=== PATIENT | female | born 1980 | race American Indian/Alaskan Native ===

== ENCOUNTER 2016-08-20 13:17 | Observation (INO) | payer OTHER ==
[2016-08-20 15:19] LABS: RBC URINE 2 /hpf (0-3); URINE BILIRUBIN NEGATIVE (NEGATIVE); URINE BLOOD NEGATIVE (NEGATIVE); URINE COLOR Yellow (YELLOW); URINE GLUCOSE (UA) NORMAL (Normal); URINE KETONE TRACE mg/dL (NEGATIVE); URINE LEUKOCYTE ESTERASE TRACE Leu/uL (Negative); URINE PROTEIN NEGATIVE (NEGATIVE); URINE UROBILINOGEN NORMAL mg/dL (0.2-1.0); WBC URINE 2 /hpf (0-5)
[2016-08-20] MEDS ORDERED: Sodium Chloride 0.9% 1,000 ML IV ONE (15:31)
[2016-08-20] MEDS ORDERED: Sodium Chloride 0.9% 1,000 ML ONE (15:47)
[2016-08-20 16:07] LABS: BASO # 0.1 K/uL (0.0-0.2); BASO % 0.9 % (0.0-2.0); EOS # 0.2 K/uL (0.0-0.7); EOS % 2.5 % (0.0-4.0); HEMATOCRIT 34.3 % (34.0-47.0); LYMPH # 1.9 K/uL (1.0-4.3); LYMPH % 24.9 % (20.0-40.0); MEAN CELL VOLUME 88.4 fL (81.0-99.0); MEAN CORPUSCULAR HEMOGLOBIN 28.8 pg (27.0-31.0); MEAN CORPUSCULAR HGB CONC 32.6 g/dL (33.0-37.0); MEAN PLATELET VOLUME 8.1 fL (7.2-11.7); MONO # 0.6 K/uL (0.0-0.8); MONO % 7.3 % (0.0-10.0); RED CELL DISTRIBUTION WIDTH 13.3 % (11.5-14.5); WHITE BLOOD COUNT 7.7 K/uL (4.8-10.8)
[2016-08-20 16:17] LABS: CHLORIDE 102 mmol/L (98-107)
[2016-08-20 16:18] LABS: GFR AFRICAN-AMERICAN > 60; POTASSIUM 4.5 mmol/L (3.6-5.2); SODIUM 133 mmol/L (132-148)
[2016-08-20 16:19] LABS: ALKALINE PHOSPHATASE 64 U/L (38-126); ALT/SGPT 173 U/L (9-52); AST/SGOT 125 U/L (14-36); BILIRUBIN,TOTAL 0.5 mg/dL (0.2-1.3); BLOOD UREA NITROGEN 4 mg/dL (7-17); CALCIUM 8.7 mg/dl (8.6-10.4); CARBON DIOXIDE 20 mmol/L (22-30); GLUCOSE,RANDOM 77 mg/dL (65-105); TOTAL PROTEIN 7.3 g/dL (6.3-8.3)
--- NOTE | 2016-08-20 18:17 | US ---
Indication: Abdominal pain Comparison: None available Technique: Transabdominal pelvic ultrasound Findings: The uterus measures approximately 16 x 9.2 x 12.5 cm. Cervix length measures approximately 3.6 cm. There is a single intrauterine fetus present. Yolk sac is not identified. The crown-rump length measures 7.1 cm and is compatible with a gestational age of 13 weeks 2 days. There is heart motion which measured 156.6 BPM. The right ovary measures 2.8 x 1.5 x 2.1 cm. The left ovary measures 2.9 x 2.3 x 2.8 cm. 1.7 x 1.6 x 1.7 cm probable left corpus luteal cyst. Blood flow was demonstrated to both ovaries. Impression: Live single intrauterine with estimated gestational age 13 weeks 2 days. heart rate 156.6 bpm. Advise an anomaly screen at 16-18 weeks gestational age Additional findings as above.
--- NOTE | 2016-08-20 18:27 | US ---
Jump PROCEDURE: Ultrasound of the Kidneys HISTORY: Right flank pain COMPARISON: None available. TECHNIQUE: Sonogram of the kidneys. FINDINGS: RIGHT KIDNEY: Measures: 12.6 x 5.0 x 6.0 cm. No obstructing calculus identified. Probable prominent extrarenal pelvis. No definite hydronephrosis. LEFT KIDNEY: Measures: 12.6 x 5.8 x 6.0 cm. No obstructing calculus identified. Probable prominent extrarenal pelvis. No definite hydronephrosis. OTHER FINDINGS: Prevoid urinary bladder measures approximately 9.3 x 5.4 x 9.0 cm, calculated volume 234.1 mL. No postvoid residual. Bilateral ureteral jets are identified. Urinary bladder wall thickness likely exaggerated by under distension IMPRESSION: Examination limited by habitus. Bilateral probable prominent extra renal pelves. No definite evidence of hydronephrosis. Correlate clinically. Prevoid urinary bladder calculated volume 234.1 mL. No postvoid residual. Urinary bladder wall thickness likely exaggerated by under distension. Correlate clinically.
--- NOTE | 2016-08-20 19:51 | C.PDOC ---
Time Seen by Provider: 08/20/16 15:11 Chief Complaint (Nursing): Abdominal Pain History Per: Patient Onset/Duration Of Symptoms: Days, Waxing/Waning Current Symptoms Are (Timing): Still Present Severity: Moderate Location Of Pain/Discomfort: RLQ, Suprapubic Radiation Of Pain To:: Back, Flank Quality Of Discomfort: "Pain" Associated Symptoms: Nausea, Vomiting Alleviating Factors: None Additional History Per: Prior Records Abnormal Vaginal Bleeding: No Last Menstral Period: 13 week Past Medical History Reviewed: Historical Data, Nursing Documentation, Vital Signs Vital Signs: Last Vital Signs Temp 98.3 F 08/20/16 18:52 Pulse 90 08/20/16 18:52 Resp 18 08/20/16 18:52 BP 117/68 08/20/16 18:52 Pulse Ox 97 08/20/16 19:51 - Medical History PMH: No Chronic Diseases Surgical History: No Surg Hx Family History: States: Unknown Family Hx - Social History Hx Alcohol Use: No Hx Substance Use: No - Immunization History Hx Tetanus Toxoid Vaccination: No Hx Influenza Vaccination: No Hx Pneumococcal Vaccination: No Review Of Systems Except As Marked, All Systems Reviewed And Found Negative. Constitutional: Negative for: Fever, Weakness Cardiovascular: Negative for: Chest Pain Respiratory: Negative for: Shortness of Breath Gastrointestinal: Positive for: Nausea, Vomiting, Abdominal Pain. Negative for : Diarrhea, Melena, Hematochezia, Hematemesis Genitourinary: Negative for: Vaginal Discharge, Vaginal Bleeding Musculoskeletal: Positive for: Back Pain. Negative for: Neck Pain Skin: Negative for: Rash Neurological: Negative for: Weakness, Numbness, Seizures, Altered Mental Status Physical Exam - Physical Exam Appears: Non-toxic, No Acute Distress Skin: Normal Color, Warm, Dry, No Rash Head: Atraumatic, Normacephalic Eye(s): bilateral: PERRL, EOMI Neck: Normal ROM, Supple Cardiovascular: Rhythm Regular Respiratory: Normal Breath Sounds, No Accessory Muscle Use Gastrointestinal/Abdominal: Soft, Tenderness (nonspecific right lower side), Other (Gravid) Back: CVA Tenderness (mild right) Extremity: Normal ROM Neurological/Psych: Oriented x3, Normal Motor, Normal Sensation ED Course And Treatment - Laboratory Results Result Diagrams: 08/20/16 16:03 08/20/16 16:03 Lab Interpretation: No Acute Changes Urine POC: Positive O2 Sat by Pulse Oximetry: 97 Pulse Ox Interpretation: Normal - CT Scan/US Pelvic US Other Rad Studies (CT/US): Read By Radiologist, Radiology Report Reviewed CT/US Interpretation: Impression: Live single intrauterine with estimated gestational age 13 weeks 2 days. heart rate 156.6 bpm. Advise an anomaly screen at 16-18 weeks gestational age. Additional findings as above. Renal US Other Rad Studies (CT/US): Read By Radiologist, Radiology Report Reviewed CT/US Interpretation: IMPRESSION: Examination limited by habitus. Bilateral probable prominent extra renal pelves. No definite evidence of hydronephrosis. Correlate clinically. Prevoid urinary bladder calculated volume 234.1 mL. No postvoid residual. Urinary bladder wall thickness likely exaggerated by under distension. Correlate clinically. Progress Note: After IVF and Tylenol, pt is still in pain. - Physician Consult Information Physician Contacted: Braydon Bhardwaj (Airframe Technician) Outcome Of Conversation: She wants pt to be admitted on medical service and she will consult. Progress - Interventions Interventions:: Observation, Intravenous fluid - Medications Administered Oral: Acetaminophen Intravenous: Antiemetic, Opiate - Data Reviewed Data Reviewed: Lab, Diagnostic imaging, Old records - Patient Status Patient status: Partially improved - Continuity of Care Discussed patient case with:: Patient, ED Nurse, On-call PMD-pt unassigned Discussed pt. case with retirement sales consultant/specialty: Obstetrics/Gynecology Medical Decision Making Medical Decision Making: Plan is to place pt on observation for serial abdominal exams and to obtain an MRI of the abdomen in the AM. Disposition Discussed With : Milton Fleming Comment: He accepted pt on his service and gave admitting orders to the nurse. Doctor Will See Patient In The: Hospital Counseled Patient/Family Regarding: Studies Performed, Diagnosis - Disposition Disposition: HOSPITALIZED Disposition Time: 20:27 Condition: FAIR - Clinical Impression Clinical Impression: Abdominal pain during
[2016-08-20] MEDS ORDERED: Nalbuphine 20 mg/ml Inj (1 ml) IVP STA (20:00)
[2016-08-20] MEDS: Dextrose 5%/0.45% NS 1,000 ML IV SCH (20:40)
--- NOTE | 2016-08-20 22:09 | CP.PCM.CON ---
History of Present Illness - History of Present Illness History of Present Illness: ob consult HPI 35 y/o with LMP 05/27/16, of presents to er with c/o abdominal pain radiating to right flank.patient states that she has nausea and vomiting from the beginning of . hx of constipation with last bowel movement 1 week ago pateintd eneis any fever, chills, chest pain, shortenss of breath, shoulder pain Review of Systems - Review of Systems All systems: reviewed and no additional remarkable complaints except - Constitutional Constitutional: absent: Chills, Headache, Weight Loss, Weakness - EENT Eyes: absent: Change in Vision - Cardiovascular Cardiovascular: absent: Chest Pain, Dyspnea - Respiratory Respiratory: absent: Cough, Dyspnea - Gastrointestinal Gastrointestinal: Abdominal Pain, Bloating, Constipation, Nausea - Genitourinary Genitourinary: absent: Dysuria, Urinary Urgency - Reproductive: Female Reproductive:Female: Amenorrhea - Psychiatric Psychiatric: absent: Anxiety Past Patient History - Past Social History Smoking Status: Never Smoked - CARDIAC Hx Cardiac Disorders: No - PULMONARY Hx Respiratory Disorders: No - RENAL Hx Chronic Kidney Disease: No - GASTROINTESTINAL Hx Gastrointestinal Disorders: Yes Hx Constipation: Yes - GENITOURINARY/GYNECOLOGICAL LMP:: 05/27/16 : 11 Para: 8 - PSYCHIATRIC Hx Substance Use: No - SURGICAL HISTORY Hx Surgeries: No - ANESTHESIA Hx Anesthesia: No Meds Allergies/Adverse Reactions: Allergies Allergy/AdvReac Type Severity Reaction Status Date / Time No Known Allergies Allergy Verified 08/20/16 14:13 - Medications Medications: Current Medications Famotidine (Pepcid) 20 mg PO BID [facility] Dextrose/Sodium Chloride (Dextrose 5%/0.45% Ns 1000 Ml) 1,000 mls @ 100 mls/hr IV .Q10H [facility] Last Admin: 08/20/16 20:40 Dose: 100 mls/hr Physical Exam - Constitutional Appears: No Acute Distress - Respiratory Exam Respiratory Exam: NORMAL BREATHING PATTERN - Cardiovascular Exam Cardiovascular Exam: REGULAR RHYTHM - GI/Abdominal Exam GI & Abdominal Exam: Soft. absent: Guarding, Rebound, Rigid - Extremities Exam Extremities exam: Negative for: calf tenderness - Back Exam Back exam: absent: CVA tenderness (L), CVA tenderness (R) - Neurological Exam Neurological exam: Alert, Oriented x3 - Psychiatric Exam Psychiatric exam: Normal Affect, Normal Mood - Skin Skin Exam: Normal Color Results - Vital Signs Recent Vital Signs: Last Vital Signs Temp 98.1 F 08/20/16 21:41 Pulse 84 08/20/16 21:41 Resp 20 08/20/16 21:41 BP 123/74 08/20/16 21:41 Pulse Ox 99 08/20/16 21:41 - Labs Result Diagrams: 08/20/16 16:03 08/20/16 16:03 - Imaging and Cardiology US - abdomen Status: Report reviewed by me Additional comment: Impression: Live single intrauterine with estimated gestational age 13 weeks 2 days. heart rate 156.6 bpm. Advise an anomaly screen at 16- 18 weeks gestational age. Additional findings as above. Assessment & Plan (1) Abdominal pain during Assessment and Plan: 35 y/o AT 13 WEEKS AND 2 DAYS GESTATION WITH C/O ABDOMINAL PAIN RADIATING TO RIGHT FLANK.ULTRASOUND DONE SHOWS VIABLE INTRAUTERINE .HX OF CONSTIPATION -RECOMMEND STOOL SOFTENER -FURTHER MANAGEMENT PER PRIMARY MD Status: Acute
[2016-08-21] MEDS: Dextrose 5%/0.45% NS 1,000 ML IV SCH ×2 (05:34→17:07)
[2016-08-21 07:57] VITALS: RESP 20
--- NOTE | 2016-08-21 09:12 | CP.PCM.PN ---
Subjective - Date & Time of Evaluation Date of Evaluation: 08/21/16 Time of Evaluation: 09:09 - Subjective Subjective: Medicine Progress Note- Dr Fleming's service Patient seen and examined. Patient continues to complain of pain but states that the pain has changed since yesterday. Patient's pain yesterday was located in her right flank and today the patient states that her pain is now located in her left flank. Patient denies vaginal bleeding, pelvic pain, rupture of membranes, dysuria, and vomiting. Patient does complain of nausea and constipation. Patient states that she has never experienced these symptoms in her previous pregnancies. Objective - Vital Signs/Intake and Output Vital Signs (last 24 hours): Temp Pulse Resp BP Pulse Ox 98.2 F 72 20 96/60 L 97 08/21/16 07:55 08/21/16 07:55 08/21/16 07:55 08/21/16 07:55 08/21/16 07:55 Intake and Output: 08/21/16 08/21/16 06:59 18:59 Intake Total 900 Balance 900 - Medications Medications: Current Medications Docusate Sodium (Colace) 100 mg PO BID [facility] Famotidine (Pepcid) 20 mg PO BID [facility] Dextrose/Sodium Chloride (Dextrose 5%/0.45% Ns 1000 Ml) 1,000 mls @ 100 mls/hr IV .Q10H [facility] Last Admin: 08/21/16 05:34 Dose: 100 mls/hr Ondansetron HCl (Zofran Tab) 4 mg PO Q8 PRN PRN Reason: vomiting Multivit/Folic Acid/Iron () 1 tab PO DAILY [facility] - Constitutional Appears: Non-toxic, No Acute Distress - Head Exam Head Exam: ATRAUMATIC, NORMOCEPHALIC - Eye Exam Eye Exam: EOMI, Normal appearance - ENT Exam ENT Exam: Mucous Membranes Moist - Neck Exam Neck Exam: Normal Inspection - Respiratory Exam Respiratory Exam: Clear to Ausculation Bilateral, NORMAL BREATHING PATTERN. absent: Rhonchi, Wheezes, Respiratory Distress - Cardiovascular Exam Cardiovascular Exam: REGULAR RHYTHM, +S1, +S2 - GI/Abdominal Exam GI & Abdominal Exam: Distended (), Soft, Tenderness (ttp over RUQ and LUQ of abdomen ), Normal Bowel Sounds. absent: Firm, Guarding, Rigid, Diminished Bowel Sounds - Extremities Exam Extremities Exam: Full ROM, Normal Inspection. absent: Joint Swelling, Pedal Edema - Back Exam Back Exam: NORMAL INSPECTION. absent: CVA tenderness (L), CVA tenderness (R), paraspinal tenderness - Neurological Exam Neurological Exam: Alert, Awake, CN II-XII Intact, Oriented x3 - Psychiatric Exam Psychiatric exam: Normal Affect, Normal Mood - Skin Skin Exam: Dry, Intact, Normal Color, Warm Assessment and Plan - Assessment and Plan (Free Text) Assessment: (1) Abdominal pain Kidney US: Bilateral probable prominent extra renal pelves. No definite evidence of hydronephrosis. Correlate clinically. OB US shows viable intrauterine AST 125 ALT 173 UA negative Consulted GI Dr Baltazar- diana f/u recs Consulted OB Dr Bhardwaj - recommends treating constipation Start Colace 100mg PO BID Tylenol prn pain liquid diet f/u amylase, hepatitis panel, lipase, mono CBC within normal limits BMP within normal limits (2) Prophylaxis pepcid SCDs Will discuss with Dr Fleming
[2016-08-21] MEDS: Prenatal Multivit/Folic Acid/Iron Tab PO SCH (10:57)
[2016-08-21 11:32] LABS: AMYLASE 54 U/L (30-110)
--- NOTE | 2016-08-21 14:09 | US ---
HISTORY: r/o cholelithiasis/cholecystitis COMPARISON: None. TECHNIQUE: Sonographic evaluation of the right upper quadrant of the abdomen. FINDINGS: LIVER: Measures 20.0 cm in length. Diffusely increased echogenicity of the liver parenchyma. Consistent with mild fatty infiltration. Smooth contour. No mass. No biliary ductal dilatation. GALLBLADDER: Unremarkable. No gallstones. COMMON BILE DUCT: Measures 3 mm. No stones. No dilatation. PANCREAS: Unremarkable as visualized. No mass. No ductal dilatation. RIGHT KIDNEY: Measures 15.1 cm in length. Normal echogenicity. No calculus, mass, or hydronephrosis. AORTA: No aneurysmal dilatation. IVC: Unremarkable. OTHER FINDINGS: None . IMPRESSION: No evidence of cholelithiasis or cholecystitis. Mild hepatomegaly with diffuse fatty infiltration.
--- NOTE | 2016-08-21 15:23 | CON ---
DATE: 08/20/2016 REASON FOR CONSULTATION: Abdominal pain and flank pain, 13 weeks . HISTORY OF PRESENT ILLNESS: This is a 35-year-old female who has had 11 pregnancies and 8 vaginal de liveries. She presents 13 weeks with pain in her flank and general abdominal area. She sta shannon it is not accompanied by fever, nausea or vomiting. PAST MEDICAL AND SURGICAL HISTORY: Negative. FAMILY HISTORY: Noncontributory. REVIEW OF SYSTEMS: Noncontributory. PHYSICAL EXAMINATION: GENERAL: She is a slightly obese black female, in no acute distress. Pertinent physical findings in cludes: ABDOMEN: Soft and basically benign. No palpable masses. There was some mild right flank tenderness , but otherwise no further abnormal findings. My recommendation is she have an ultrasound and continue on a clear liquid diet for now. Renzo Díaz MD cc: [id number] TT: 08/21/2016 15:21:58 Confirmation # [id number] Dictation # [id number] en
--- NOTE | 2016-08-21 15:24 | PN ---
DATE: 08/21/2016 The patient is seen in her room today. She is resting comfortably in bed, having a clear liquid diet . She continues to complain of pain in both flanks. However, the abdominal pain is resolved. An ultrasound was performed today, which was negative for gallstones any abdominal pathology. PHYSICAL EXAMINATION: ABDOMEN: Remains benign. There is now no longer any right flank tenderness. IMPRESSION: The abdominal pain is improving. So far, there is no significant pathology noted. Renzo Díaz MD cc: [id number] TT: 08/21/2016 15:23:47 Confirmation # [id number] Dictation # [id number] en
[2016-08-21] MEDS ORDERED: Magnesium Hydroxide Susp 30 ml UD PO ONE ×2 (15:30→17:10)
[2016-08-22] MEDS: Dextrose 5%/0.45% NS 1,000 ML IV SCH (03:11)
[2016-08-22 07:30] LABS: BASO % 0.4 % (0.0-2.0); EOS # 0.2 K/uL (0.0-0.7); EOS % 3.1 % (0.0-4.0); HEMATOCRIT 32.1 % (34.0-47.0); LYMPH # 1.8 K/uL (1.0-4.3); LYMPH % 29.4 % (20.0-40.0); MEAN CELL VOLUME 87.6 fL (81.0-99.0); MEAN CORPUSCULAR HEMOGLOBIN 29.5 pg (27.0-31.0); MEAN CORPUSCULAR HGB CONC 33.6 g/dL (33.0-37.0); MONO # 0.6 K/uL (0.0-0.8); MONO % 9.3 % (0.0-10.0); NRBC % 0.1 % (0.0-2.0); RED CELL DISTRIBUTION WIDTH 13.2 % (11.5-14.5); WHITE BLOOD COUNT 6.2 K/uL (4.8-10.8)
[2016-08-22 07:52] LABS: CHLORIDE 101 mmol/L (98-107)
[2016-08-22 07:53] LABS: POTASSIUM 3.9 mmol/L (3.6-5.2); SODIUM 133 mmol/L (132-148)
[2016-08-22 07:56] LABS: ALKALINE PHOSPHATASE 55 U/L (38-126); ALT/SGPT 139 U/L (9-52); AST/SGOT 92 U/L (14-36); BILIRUBIN,TOTAL 0.3 mg/dL (0.2-1.3); BLOOD UREA NITROGEN 4 mg/dL (7-17); CARBON DIOXIDE 22 mmol/L (22-30); GFR AFRICAN-AMERICAN > 60; GLUCOSE,RANDOM 106 mg/dL (65-105); TOTAL PROTEIN 6.4 g/dL (6.3-8.3)
[2016-08-22 07:57] LABS: CALCIUM 8.6 mg/dl (8.6-10.4)
[2016-08-22 08:08] LABS: ALB/GLOB RATIO 0.9 (1.0-2.1)
[2016-08-22 08:18] VITALS: BP 104/69; PULSE 78; O2SAT 97
--- NOTE | 2016-08-22 08:56 | PN ---
DATE: 08/22/2016 LOCATION: 563, bed A. This is a 35-year-old female seen and examined for GI consultation on 08/21/2016 as requested by the admitting medical team, reexamined again today without significant clinical changes with intermittent period of abdominal pain. The patient is and somewhat tolerating oral intake with intermit tent periods of severe headache. The entire chart is reviewed, including but not limited to the most recent lab and radiology study re sults, current and previous medication list, current and the previous medical events and I ordered ul trasound of the abdomen to be done which showed no evidence of gallbladder stone or cholecystitis, bu t mild hepatomegaly with diffuse fatty infiltrate which could be secondary to her anyhow. Today's lab results showed low hemoglobin of 10.8, hematocrit 32.1 with low BUN and the creatinine wi th AST went down to 92, ALT went down to 136, with low albumin 2.9. Her entire hepatitis profile was negative including hepatitis A, B surface antigen, C and B core as well as infectious mono assay. PHYSICAL EXAMINATION: GENERAL: A 35-year-old female, awake, alert, oriented with intermittent period of crampy abdominal p ain. VITAL SIGNS: Afebrile with a pulse of 76, blood pressure 110/62. HEENT: Showed slightly pale, dry oral mucoid membrane. Nonicteric sclerae. LUNGS: Few scattered crepitation. Decreased air entry at bases. HEART: Positive S1 and S2. ABDOMEN: Soft. Bowel sounds are present with slight generalized tenderness. No mass or organomegal y. RECTAL: The patient refused. EXTREMITIES: Without significant clubbing, cyanosis or edema. IMPRESSION: 1. Abnormal liver function tests of unclear etiology. Again, that could be secondary to drug induce d versus her own . 2. Reexacerbation of peptic ulcer disease. SUGGESTION: 1. Continue current management. 2. The patient is and no aggressive GI workup at this point. An ERP PM evaluation and work up should be carried on. At this point, that to be discussed at length with the admitting . Bart er evaluation and recommendation to follow. Scarlett Baltazar MD cc: 14 TT: 08/22/2016 08:56:21 Confirmation # [id number] Dictation # [id number] jn
[2016-08-22] MEDS: Prenatal Multivit/Folic Acid/Iron Tab PO SCH (10:28)
--- NOTE | 2016-08-22 12:52 | CP.PCM.PN ---
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 Objective - Vital Signs/Intake and Output Vital Signs (last 24 hours): Temp Pulse Resp BP Pulse Ox 98.1 F 78 20 104/69 97 08/22/16 07:20 08/22/16 07:20 08/22/16 07:20 08/22/16 07:20 08/22/16 07:20 Intake and Output: 08/22/16 08/22/16 06:59 18:59 Intake Total 1220 Balance 1220 - Medications Medications: Current Medications Acetaminophen (Tylenol 325mg Tab) 650 mg PO Q6 PRN PRN Reason: Pain, Mild (1-3) Last Admin: 08/21/16 20:28 Dose: 650 mg Docusate Sodium (Colace) 100 mg PO BID [facility] Last Admin: 08/22/16 09:59 Dose: 100 mg Famotidine (Pepcid) 20 mg PO BID [facility] Last Admin: 08/22/16 09:59 Dose: 20 mg Dextrose/Sodium Chloride (Dextrose 5%/0.45% Ns 1000 Ml) 1,000 mls @ 100 mls/hr IV .Q10H [facility] Last Admin: 08/22/16 03:11 Dose: 100 mls/hr Ondansetron HCl (Zofran Tab) 4 mg PO Q8 PRN PRN Reason: vomiting Last Admin: 08/21/16 17:07 Dose: 4 mg Multivit/Folic Acid/Iron () 1 tab PO DAILY [facility] Last Admin: 08/22/16 10:28 Dose: 1 tab - Labs Labs: 08/22/16 07:20 08/22/16 07:20
[2016-08-22 13:01] VITALS: TEMP 98
--- NOTE | 2016-08-23 08:28 | CON ---
DATE: 08/21/[address] Scarlett Baltazar to Dr. Milton Motta. I was called for GI consultation by the admitting MD. The patient is seen and fully examined on 11/29 as requested by the admitting MD for GI consultation. The entire chart is reviewed, including but not limited to the most recent lab and radiology study re sults, current and the previous medication lists, current and the previous medical events, as well as allergy to medication list, and all the available current and the previous medical records. HISTORY OF PRESENT ILLNESS: This is a 35-year-old female a patient for 3 months, was admitt ed to the hospital through the Emergency Room with the main complaint of severe crampy abdominal pain with episodes of nausea and vomiting, and severe constipation for at least 8-10 days prior to her ad mission with lower back pain and flank area pain. No reported active bleeding. The patient is for 13 weeks now. PAST MEDICAL HISTORY: None except mild peptic ulcer disease. FAMILY HISTORY: Unknown. SOCIAL HISTORY: The patient denied any alcohol intake or cigarette-smoking. ALLERGY TO MEDICATION: The patient denies. CURRENT MEDICATIONS: Medication list post-admission is reviewed. LABORATORY DATA: After being admitted to the hospital, the patient's initial CBC was reported to be within normal limits, but with low CO2 content of 20 with low BUN and creatinine compatible with the patient's known history of with mildly elevated liver function tests. Again, that could be somewhat related to her . PHYSICAL EXAMINATION: GENERAL: A 35-year-old female. VITAL SIGNS: Afebrile with pulse of 88, respiratory rate 20-22 with blood pressure of 124/62. HEENT: Showed pale, dry oral mucoid membrane. Nonicteric sclerae. LYMPH NODES: No lymphadenitis or lymphadenopathy. LUNGS: Few scattered crepitations. Breathing sounds are present bilaterally. HEART: Positive S1 and S2 with increased rate. ABDOMEN: Comfortable with the patient. of 13 weeks with generalized tenderness and mild d istention. Bowel sounds are hypoactive. EXTREMITIES: Without significant clubbing, cyanosis or edema. NEUROLOGIC: No neurological deficit reported - sensory or motor. RECTAL: The patient refused. IMPRESSION: 1. Change of bowel movement habit with recurrent episodes of nausea and vomiting that could be secon laquita to reexacerbation of peptic ulcer disease versus the patient's timing. 2. Change of bowel movement habit with constipation of unclear etiology ____. 3. Mild change of liver function tests. Again, the possibility of viral hepatitis versus Monospot a nd/or gallbladder disorder should be ruled in or out. 4. Rule out possible acute pancreatitis. SUGGESTION: 1. I agree with your plan. 2. Hepatitis profile. 3. Monospot. 4. Abdominal ultrasound with attention to the biliary tree and the pancreas. 5. Serum lipase, amylase level. It has to be mentioned that the patient may benefit from tap-water enema or retention enema only if i t is okay with [employer]ICAL RECEPTIONIST [employer]ILLER technical solutions consultant on the case, and none of the medication is to be ordered without the approval of the MEDICAL RECEPTIONIST [employer]ER technical solutions consultant. Further evaluation to follow. Thank you for letting me participate in your patient's case management, and Roland BENAVIDES to be kept in m ind if it is okay with the [employer]ICAL RECEPTIONIST B[employer]ER technical solutions consultant on the case. Scarlett Baltazar MD cc: 14 TT: 08/23/2016 08:28:21 Confirmation # [id number] Dictation # [id number] jn
--- NOTE | 2016-08-24 07:28 | HP ---
A 35-year-old female chief complaint abdominal pain, weakness, fatigue. Patient is a few weeks pregna nt. PHYSICAL EXAMINATION: GENERAL: The patient is awake, alert, oriented. VITAL SIGNS: Temperature 98, pulse 90. HEENT: Within normal limits. NECK: Supple. CHEST: Symmetrical. HEART: Regular. ABDOMEN: Soft. EXTREMITIES: No edema. The patient with abdominal pain, , ___ bedrest, supportive care, GI consult. Milton Motta MD cc: [id number] TT: 08/21/2016 12:04:17 rn 08/24/2016 06:27:57
--- NOTE | 2016-08-24 07:59 | DS ---
The patient was admitted to the hospital chief complaint weakness, fatigue, tiredness. The patient ch ief complaint pain, ____ a few weeks . The patient supportive care. Ultrasound normal. ____ _ uneventful. The patient discharge, follow up outpatient. Milton Motta MD cc: [id number] TT: 08/22/2016 20:12:20 dn 08/24/2016 06:58:15
== END 2016-08-22 14:00 | disposition home or self-care (01) ==
LOC: C.ER 13:17 → C.9E 20:28 → C.5T 21:17
PROVIDERS: ADMIT Internal Medicine Pulmonary Disease; ATTEND Internal Medicine Pulmonary Disease
DX: O26.891 Other specified pregnancy related conditions, first trimester (principal); Z3A.13 13 weeks gestation of pregnancy; R10.31 Right lower quadrant pain; R53.1 Weakness
CPT/HCPCS: 36415; 76705; 76770; 76801; 76857; 80053; 80074; 80324; 80345; 80346; 80349; 80353; 80358; 80361; 81001; 82150; 82977; 83690; 83992; 84702; 84703; 85025; 86308; 87086; 96374; 99285; G0378; J2405; J7042

== ENCOUNTER 2016-12-14 16:46 | Emergency (ER) | payer SELFPAY ==
[2016-12-14] MEDS ORDERED: ceFAZolin IV 1 gm in Dextrose 1 GM/50 ML BAG IVPB ONE (18:00)
[2016-12-14 18:29] LABS: RBC URINE 2 /hpf (0-3); URINE BACTERIA FEW (<OCC); URINE BILIRUBIN NEGATIVE (NEGATIVE); URINE BLOOD NEGATIVE (NEGATIVE); URINE COLOR Amber (YELLOW); URINE GLUCOSE (UA) NORMAL (Normal); URINE KETONE TRACE mg/dL (NEGATIVE); URINE LEUKOCYTE ESTERASE 1+ Leu/uL (Negative); URINE PROTEIN 1+ mg/dL (NEGATIVE); WBC URINE 15 /hpf (0-5)
--- NOTE | 2016-12-14 18:50 | OBHP ---
Datetime: 12/14/2016 17:18 IP Adm Impression: , intrauterine IP Chief Complaint Other: dysuria IP Admit Plan: Discharge home Admit Comment, IP Provider: 36 y/o [id number] LMP unknown _ 05/2016 EDY 02/19/17 by US done 11/27 aon prior _ 30.3 days moved from [facility] c/o dysuria on and off with burnign with urintation over past fe w days. pt also report yellow discharge, thick, no odor, no itching. Pt denies any urgency, no hemat urai. pt erports constiatpin, last BM yesterday. Pt libby any fevers, chills, nause, vomiting. Pt re ports any flank or back pain. Pt states she was dx wtih uti on 11/27 and could not afford prescription . Pt deneis any ctx, LOF, vb, +FM. Pt reports is moving to [place] next month. 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 hx of abnoral pap, fibroids, ovarin syst, sti FHX: denies SHX: denies etoh/tobacco/drugs MEDS: PNV ALLERGY: Tyenoln "stomach aldrich" VSS PE see above A/P 36 y/o [id number] @ 30.3 wks GA with UTI -no evide of pylenophpritis, nephrolithiaiss, labor -ua -IV ancef -d/ chome, precautisn givne, importance of care, rx keflex Pelvic Type - PN: Adequate Extremities - PN: Normal Abdomen - PN: Normal Back - PN: Normal Breast - PN: Not Done Lungs - PN: Normal Heart - PN: Normal Thyroid - PN: Normal Neurologic - PN: Not Done HEENT - PN: Normal General - PN: Normal Presentation-Admit: Vertex FHR - Baseline A Provider: 140 Contraction Comments Provider: none Comments, ACOG Physical Exam: Abd: soft, NT/ND, no guarding, no rebound tendneres, no rigidity, External Gential: no gross abormal Bladder; Non tender Vagina; minimal whiat discharge, no odor Cervix; long/closed/posterior, non tender Uterus ;non tender Gestation - Est Wks by US: 30.3 Vital Signs Provider: Reviewed; Within Normal Limits NICHD Variability Prov Fetus A: Moderate 6-25bpm FHR Category Provider Fetus A: Category I NICHD Decel Fetus A IP Provider: None Dilatation, Provider: 0 Effacement, Provider: 0 Station, Provider: -3 Genitourinary Exam: Normal DTRs - PN: Normal
[2016-12-14 23:33] VITALS: BP 101/62; PULSE 92
== END 2016-12-14 19:10 | disposition home or self-care (01) ==
LOC: C.EROB 16:46
DX: O23.43 Unspecified infection of urinary tract in pregnancy, third trimester (principal); Z3A.30 30 weeks gestation of pregnancy
CPT/HCPCS: 81001; 99282; J0690